=== PATIENT | female | born 1985 | race African-American/Black ===

== ENCOUNTER 2020-01-23 18:03 | Emergency (ER) | payer SELFPAY ==
[~2020-01-23] VITALS: Ht 165.1 cm; Wt 86.5 kg
--- NOTE | 2020-01-23 18:20 | NUR ---
ERMD at bedside for evaluation
[2020-01-23] MEDS ORDERED: PROMETHAZINE 25 MG/ML, 1ML ONE (18:28)
[2020-01-23] MEDS ORDERED: LORazepam 1MG TABLET ONE (18:29)
[2020-01-23] MEDS ORDERED: PROMETHAZINE 25 MG/ML, 1ML IM ONE (18:30)
[2020-01-23] MEDS ORDERED: LORazepam 1MG TABLET PO ONE (18:30)
[2020-01-23 18:33] VITALS: BP 165/85
== END 2020-01-23 20:36 | disposition home or self-care (01) ==
LOC: ED 19:30
DX: F15.10 Other stimulant abuse, uncomplicated (principal); F41.9 Anxiety disorder, unspecified; R11.2 Nausea with vomiting, unspecified; R00.0 Tachycardia, unspecified
CPT/HCPCS: 96372; 99283; J2550